=== PATIENT | male | born 1970 | race Caucasian/White ===

== ENCOUNTER 2017-02-17 21:11 | Emergency (ER) | payer SELFPAY ==
[2017-02-17] MEDS ORDERED: ASPIRIN 81 MG CHEW TAB PO ONE (21:13)
[2017-02-17] MEDS ORDERED: NITROGLYCERIN 0.4 MG TAB.SUBL SL ONE ×4 (21:18→21:38)
[2017-02-17] MEDS ORDERED: 0.9 % SODIUM CHLORIDE 1,000 ML IV ONE ×3 (21:20→22:54)
[2017-02-17] MEDS ORDERED: ONDANSETRON HCL/PF 4 MG/ 2ML VIAL IVP ONE (21:28)
[2017-02-17 21:29] LABS: BASOPHILS % 0.4 (0.0-1.5); EOSINOPHILS % 3.7 % (0.0-6.8); MEAN CORPUSCULAR HEMOGLOBIN 30.8 pg (28.0-34.0); MEAN CORPUSCULAR VOLUME 87.5 fl (80.0-100.0); NEUTROPHILS # 4.7 # k/uL (1.4-7.7)
--- NOTE | 2017-02-17 21:34 | ED Physician Documentation ---
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 C/O nausea with episode, denied diaphoresis, c/o mild SOB with episode. Patient with near syncopal episode on arrival.) - ROS CONST: none MS/LYMPH: none GI/: none EYES/ENT: none SKIN/ENDO: none NEURO/PSYCH: none - PAST HX [facility] risk factors: other (Heat stroke 2009 - Life flight to [facility], cardiac arrest) DVT/PE Risk Factors: none TAD/AAA risk factors: none Neuro deficit: none GI disease: none Lung disease: none Surgeries/Procedures: none Allergies/Adverse Reactions: Allergies Allergy/AdvReac Type Severity Reaction Status Date / Time No Known Allergies Allergy Verified 02/17/17 21:29 Home Medications: Ambulatory Orders Medication Instructions Recorded NK [NK] 02/17/17 - SOCIAL HX Smoking History: non-smoker - FAMILY HX Family HX: CAD over 55 - REVIEWED ASSESSMENTS Nursing Assessment Reviewed: Yes Vitals Reviewed: Yes Progress - Progress Progress: 2120 Patient rated CP 5-6/10 on arrival, ASA given and Sl nitro 7 CP 3/10 - additional nitro given 8 CP 2/10 - 3rd nitro SL given 5 CP 1/10, nitro paste applied. Recommended transfer to cardiology for R/O [facility] and further evaluation. No beds available at [facility]. Patient and family prefer [facility]. Call to [facility], patient accepted by Dr Faust, cardiology. Will transfer via EMS ground. - EKG/XRAY/CT EKG: rhythm (SR, Sinus arrhymthmia, rate 74, no acute changes) XRAY: chest (negative. ) ED Results Lab/Radiology - Lab Results Lab Results: Lab Results 02/17/17 21:24 WBC 7.70 K/ul K/ul (4.00-12.00) RBC 4.71 M/ul M/ul (3.90-5.20) Hgb 14.5 g/dL g/dL (12.0-18.0) Hct 41.2 % % (37.0-53.0) MCV 87.5 fl fl (80.0-100.0) MCH 30.8 pg pg (28.0-34.0) MCHC 35.2 g/dL g/dL (30.0-36.0) RDW 13.4 % % (11.3-14.3) Plt Count 239 K/mm3 K/mm3 (130-400) Neut % (Auto) 61.2 % % (39.0-79.0) Lymph % (Auto) 26.8 % % (16.0-50.0) Heard % (Auto) 6.0 % % (0.0-11.0) Eos % (Auto) 3.7 % % (0.0-6.8) Baso % (Auto) 0.4 (0.0-1.5) Neut # (Auto) 4.7 # k/uL # k/uL (1.4-7.7) Lymph # (Auto) 2.1 # k/uL # k/uL (0.6-4.0) Heard # (Auto) 0.5 # k/uL # k/uL (0.0-0.9) Eos # (Auto) 0.3 # k/uL # k/uL (0.0-0.6) Baso # (Auto) 0.0 # k/uL # k/uL (0.0-0.5) Reactive Lymphs % 1.8 % % (0.0-5.0) Reactive Lymphs # 0.1 # k/uL # k/uL (0.0-0.8) - Radiology Radiology Impressions: Chest, AP portable History: Chest pain Findings: No infiltrate, effusion or pneumothorax is present. Heart size, mediastinum and pulmonary vascularity are normal. Impression: No active disease. Electronically signed on Feb 17, 2017 9:40:31 PM CDT by: Royce Garcias - Orders Orders: ED Orders Category Date Time Status Continuous EKG monitoring Q30M Care 02/17/17 21:12 Active Continuous Pulse Oximetry Q30M Care 02/17/17 21:[address] IV Lock 1T Care 02/17/17 21:13 Active CHEST 1 VIEW [RAD] Stat Exams 02/17/17 21:12 Ordered CBC/PLATELET/DIFF Stat Lab 02/17/17 21:24 Completed CKMB Stat Lab 02/17/17 21:24 Received CMP Stat Lab 02/17/17 21:24 Received CREATINE KINASE Stat Lab 02/17/17 21:24 Received TROPONIN I (cTnI) Stat Lab 02/17/17 21:24 Received UA W/MICRO IF INDICATED Stat Lab 02/17/17 21:13 Ordered 0.9 % Sodium Chloride [Normal Saline] 1,000 ml Med 02/17/17 21:27 Discontinued IV .STK-MED Aspirin Med 02/17/17 21:13 Discontinued 324 mg PO NOW ONE Nitroglycerin [Nitroquick] Med 02/17/17 21:18 Discontinued 0.4 mg SL .STK-MED ONE Ondansetron HCl/Pf [Zofran 4 mg/2 ml] Med 02/17/17 21:28 Discontinued 4 mg IVP NOW ONE Oxygen Daily Oxygen 02/17/17 21:15 Ordered EKG WITH COMPARISON Stat Ther 02/17/17 21:12 Ordered Chest Pain Physical Exam - EXAM General Appearance: other (ill appearing ) EENT: eye inspection normal, ADDIS Respiratory: no resp. distress, chest non-tender, nml breath sounds CVS: reg. 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
[2017-02-17 21:43] LABS: eGFR (African) > 60; eGFR (Non-African) > 60
[2017-02-17] MEDS ORDERED: NITROGLYCERIN 0.4MG/HR PATCH TD ONE (22:02)
[2017-02-17] MEDS ORDERED: NITROGLYCERIN 2% 1GM OINT PACKET...G. TD ONE ×2 (22:08→22:09)
[2017-02-17] MEDS ORDERED: NITROGLYCERIN/D5W 50 MG/250 ML ML IV ONE ×2 (22:54)
[2017-02-17 23:48] VITALS: BP 110/76
--- NOTE | 2017-02-18 06:31 | Diagnostic Imaging Report ---
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 [id number] Report Submission Date: Feb 17, 2017 9:40:31 PM CDT Patient Study Name: TANNER OCAMPO Date: Feb 17, 2017 9:26:36 PM CDT Modality Type: CR Gender: M Description: CHEST : 68 Institution: [facility] Physician: TRAY KING (BI) - ER Chest, AP portable History: Chest pain Findings: No infiltrate, effusion or pneumothorax is present. Heart size, mediastinum and pulmonary vascularity are normal. Impression: No active disease. Electronically signed on Feb 17, 2017 9:40:31 PM CDT by: Royce MONDRAGON
== END 2017-02-17 23:30 | disposition short-term general hospital (02) ==
LOC: ED 21:11
DX: R07.9 Chest pain, unspecified (principal)
CPT/HCPCS: 71010; 80053; 82550; 82553; 84484; 85025; J3490; J7030; 96360; 99284; S1016

== ENCOUNTER 2018-04-25 17:58 | Emergency (ER) | payer SELFPAY ==
[2018-04-25 18:05] VITALS: BP 130/88
[2018-04-25] MEDS: diphenhydrAMINE HCL 25 MG TABLET PO ONE (18:15)
[2018-04-25] MEDS: methylPREDNISolone SOD SUCC 125 MG/2 ML VIAL IM ONE (18:15)
--- NOTE | 2018-04-25 18:21 | ED Physician Documentation ---
Allergy Symptoms - HISTORIAN Historian: patient - HPI Stated Complaint: ? 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 Pt presents to the ED via POV with c/o red swollen face x 2 days after cutting a tree with poison jennifer on it. he has also worn hunting makeup recently. Pt reports his face was more swollen this morning but has improved. pt reports his skin on his face is burning and itching. no sore throat, problems swallowing, coughing. pt denies current chest pain, dyspnea, syncope/near syncope, headache, dizziness, visual disturbances, n/v/d, fever, sick contacts, dysuria, trauma. melena or hematochezia, anxiety or depression. ROS Negative unless otherwise specified. Onset: days ago (2) Duration: continues in ED, worse Associated Symptoms: skin rash, facial, itching, other Swelling: face (mild ) Shortness of Breath: none Trouble Swallowing/ Speaking: none Identified Cause: possibly (Poison Jennifer) Where: work Context: Medication Exposure: none Context: Other Exposure: poison jennifer - ROS EYES/ENT: eye itching CVS/RESP: none. denies: chest pain, shortness of breath, cough GI/: none. denies: vomiting, nausea CONST: none MS/SKIN/LYMPH: none NEURO/PSYCH: none - PAST HX Prior Allergic Reaction: none Medical History: none Allergies/Adverse Reactions: Allergies Allergy/AdvReac Type Severity Reaction Status Date / Time No Known Drug Allergies Allergy Unverified 04/25/18 18:04 Home Medications: Ambulatory Orders Medication Instructions Recorded NK 02/17/17 - SOCIAL HX Smoking History: non-smoker Alcohol Use: none Drug Use: none - FAMILY HX Family History: No - VITAL SIGNS Vital Signs: Vital Signs Temp Pulse Resp BP Pulse Ox 97.8 F 86 18 130/88 98 04/25/18 17:58 04/25/18 17:58 04/25/18 17:58 04/25/18 17:58 04/25/18 17:58 - REVIEWED ASSESSMENTS Nursing Assessment Reviewed: Yes Vitals Reviewed: Yes Progress - Progress Progress: 1844- pt reports decrease in face itching, swelling, redness, reports readiness for D/C. Advised pt to return if worse, understanding verbalized ED Results Lab/Radiology - Orders Orders: ED Orders Category Date Time Status diphenhydrAMINE HCL [Benadryl] Med 04/25/18 18:13 Once 25 mg PO NOW ONE methylPREDNISolone SOD SUCC [Solu-MEDROL] Med 04/25/18 18:14 Once 125 mg IM NOW ONE Allergy Symptons Exam - EXAM General Appearance: no acute distress, alert HEENT: ENT nml inspection, pharynx nml, voice nml, facial. No: angioedema, pale conjunctivae, hoarse voice Skin: warm, skin rash, erythema (to face. few areas of raised maculapapular lesions on arms and neck. No hives. ) Extremities: non-tender, nml ROM, no edema Neck: nml inspection Respiratory: no resp. distress, breath sounds nml, respiratory distress CVS: reg rate & rhythm Abdomen: non-tender Neuro: oriented X3, motor nml, sensation nml, mood/affect nml Discharge Clincal Impression: Allergic contact dermatitis Qualifiers: Contact dermatitis trigger: non-food plants Qualified Code(s): L23.7 - Allergic contact dermatitis due to plants, except food Referrals: Allison Briscoe MD [Primary Care Provider] - 2 Days Additional Instructions: discontinue use of hunting make up. do a spot test before applying if you must use it. prednisone 5 mg taper follow directions on package. May use benadryl 25-50 mg every 8 hours as needed for itching and allergy. Zaditor Over the counter eye drops for eye itching. return if worse: chest pain, shortness of breath, increased rash, or any concerns follow up with primary care next week Condition: Good Disposition: 01 HOME, SELF-CARE Decision to Admit: NO Date of Decison to Admit: 04/25/18 Decision Time: 18:46
== END 2018-04-25 18:51 | disposition home or self-care (01) ==
LOC: ED 17:58
DX: L23.7 Allergic contact dermatitis due to plants, except food (principal)
CPT/HCPCS: J2930; Q0163; 96372; 99283